=== PATIENT | male | born 1930 | race Two or more races ===

== ENCOUNTER → 2018-04-21 | Emergency (ER) | payer OTHER ==
[~2018-04-21] VITALS: Ht 170.2 cm; Wt 81.6 kg
[~2018-04-21] MED LIST: NEURONTIN300 MG
== END | disposition home or self-care (01) ==
LOC: ER 20:48
DX: M54.5 Low back pain (principal); M25.551 Pain in right hip

== ENCOUNTER 2018-04-28 01:15 | Emergency (ER) | payer OTHER ==
[~2018-04-28] VITALS: Ht 170.2 cm; Wt 81.6 kg
[2018-04-28] MEDS ORDERED: CELEBREX100 MG PO (03:45)
[2018-04-28] MEDS ORDERED: SKELAXIN800 MG PO (03:45)
[2018-04-28] MEDS ORDERED: PERCOCET 5-3251 EACH PO (03:45)
== END 2018-04-28 04:10 | disposition home or self-care (01) ==
LOC: ER 01:15
DX: G89.11 Acute pain due to trauma (principal); M25.551 Pain in right hip; S73.191S Other sprain of right hip, sequela; W01.0XXS Fall on same level from slipping, tripping and stumbling without subsequent striking against object, sequela